=== PATIENT | male | born 1980 | race Two or more races ===

== ENCOUNTER 2017-07-08 06:27 | Emergency (ER) | payer MEDICAID ==
[2017-07-08 06:34] VITALS: BP 160/89; PULSE 130; RESP 20; TEMP 98.4; O2SAT 94
[2017-07-08] MEDS ORDERED: CHLORDIAZEPOXIDE 25MG PREPK#6 BTL TAKEHOME ONE (06:59)
--- NOTE | 2017-07-08 07:00 | EDPHY ---
H & P Stated Complaint: ETOH withdrawals, N/V, anxiety--last drink midnight Time Seen by Provider: 07/08/17 06:48 HPI/ROS: CHIEF COMPLAINT: Intoxication HISTORY OF PRESENT ILLNESS: Patient is a 37-year-old alcoholic who fell off the wagon recently. He is planning to go [facility] the [facility] but wanted to come here 1st so that he could get Librium there. He has had problems there before withdrawing without Librium. He denies any acute injury. He states that he is having some GI symptoms the day after he drinks including foul-smelling stool and vomiting. He is not suffering from in the symptoms currently. No fever. No abdominal pain. REVIEW OF SYSTEMS: Constitutional: denies: chills, fever, recent illness, recent injury EENTM: denies: blurred vision, double vision, nose congestion Respiratory: denies: cough, shortness of breath Cardiac: denies: chest pain, irregular heart rate, lightheadedness, palpitations Gastrointestinal/Abdominal: See HPI denies: abdominal pain, diarrhea, blood streaked stools Genitourinary: denies: dysuria, frequency, hematuria, pain Musculoskeletal: denies: joint pain, muscle pain Skin: denies: lesions, rash, jaundice, bruising Neurological: denies: headache, numbness, paresthesia, tingling, dizziness, weakness Hematologic/Lymphatic: denies: blood clots, easy bleeding, easy bruising Immunologic/allergic: denies: HIV/AIDS, transplant EXAM: GENERAL: Well-appearing, overweight and in no acute distress. HEAD: Atraumatic, normocephalic. EYES: Pupils equal round and reactive to light, extraocular movements intact, sclera anicteric, conjunctiva are normal. ENT: TMs normal, nares patent, oropharynx clear without exudates. Moist mucous membranes. NECK: Normal range of motion, supple without lymphadenopathy or JVD. LUNGS: Breath sounds clear to auscultation bilaterally and equal. No wheezes rales or rhonchi. HEART: Regular rate and rhythm without murmurs, rubs or gallops. ABDOMEN: Soft, nontender, normoactive bowel sounds. No guarding, no rebound. No masses appreciated. BACK: No CVA tenderness, no spinal tenderness, step-offs or deformities EXTREMITIES: Normal range of motion, no pitting or edema. No clubbing or cyanosis. NEUROLOGICAL: Cranial nerves II through XII grossly intact. Normal speech, normal gait. 5/5 strength, normal movement in all extremities, normal sensation PSYCH: Normal mood, normal affect. SKIN: Warm, dry, normal turgor, no visible rashes or lesions. Source: Patient Exam Limitations: No limitations - Personal History Current Tetanus/Diphtheria Vaccine: No Current Tetanus Diphtheria and Acellular Pertussis (TDAP): No - Medical/Surgical History Hx Asthma: No Hx Chronic Respiratory Disease: No Hx Diabetes: No Hx Cardiac Disease: No Hx Renal Disease: No Hx Cirrhosis: No Hx Alcoholism: Yes Hx HIV/AIDS: No Hx Splenectomy or Spleen Trauma: No Other PMH: ETOH withdrawl seizures, ETOHism - Family History Significant Family History: No pertinent family hx - Social History Smoking Status: Current some day smoker Alcohol Use: Heavy Drug Use: Marijuana Constitutional: Initial Vital Signs Temperature (C) 36.9 C 07/08/17 06:28 Heart Rate 130 H 07/08/17 06:28 Respiratory Rate 20 07/08/17 06:28 Blood Pressure 160/89 H 07/08/17 06:28 O2 Sat (%) 94 07/08/17 06:28 O2 Delivery Mode Room Air Allergies/Adverse Reactions: No Known Allergies Allergy (Verified 07/08/17 06:34) Home Medications: Medication Instructions Recorded NK [No Known Home Meds] 01/11/15 Medical Decision Making ED Course/Re-evaluation: The patient is here requesting help with detox. We will send him to the alcohol recovery Center with Librium prepack as requested. He is happy with this plan. He declines further workup or testing at this time. Differential Diagnosis: Partial list of the Differential diagnosis considered include but were not limited to; intoxication, withdrawal and although unlikely based on the history and physical exam, I also considered head injury, infection. I discussed these differential diagnoses and the plan with the patient as well as the usual and expected course. The patient understands that the diagnosis is provisional and that in medicine we are not always correct and that further workup is often warranted. Usual and customary warnings were given. All of the patient's questions were answered. The patient was instructed to return to the emergency department should the symptoms at all worsen or return, otherwise to followup with the physician as we discussed. - Data Points Medications Given: Discontinued Medications Chlordiazepoxide (Librium 25 Mg Prepack#6) 1 btl TAKEMARLENYE EDNOW ONE Stop: 07/08/17 07:00 Last Admin: 07/08/17 07:13 Dose: 1 btl Departure - Departure Disposition: Home, Routine, Self-Care Clinical Impression: Alcoholic intoxication Qualifiers: Complication of substance-induced condition: uncomplicated Qualified Code(s): F10.920 - Alcohol use, unspecified with intoxication, uncomplicated Condition: Fair Instructions: Alcohol Intoxication (ED) Referrals: NONE *PRIMARY CARE P,. [Primary Care Provider] - As per Instructions Marjorie Sommer MD [Medical Doctor] - As per Instructions
== END 2017-07-08 07:23 | disposition home or self-care (01) ==
DX: F10.920 Alcohol use, unspecified with intoxication, uncomplicated (principal); F17.200 Nicotine dependence, unspecified, uncomplicated